=== PATIENT | female | born 1990 | race American Indian/Alaskan Native ===

== ENCOUNTER 2020-04-21 12:50 | Emergency (ER) | payer SELFPAY | END 2020-04-21 12:57 | disposition left against medical advice (07) | LOC: ED 12:50 | DX: R11.10 Vomiting, unspecified (principal); Z53.21 Procedure and treatment not carried out due to patient leaving prior to being seen by health care provider ==

== ENCOUNTER 2020-10-19 10:34 | Emergency (ER) | payer SELFPAY | END 2020-10-19 12:27 | LOC: ED 10:34 | DX: Z00.8 Encounter for other general examination (principal); Z53.21 Procedure and treatment not carried out due to patient leaving prior to being seen by health care provider ==